=== PATIENT | female | born 1980 | race Caucasian/White ===

== ENCOUNTER 2024-12-09 21:54 | Emergency (ER) | payer SELFPAY ==
[~2024-12-09] VITALS: Ht 172.7 cm; Wt 59.0 kg
[2024-12-09 21:58] VITALS: O2SAT 98
[2024-12-09] MEDS ORDERED: diphenhydrAMINE 50 MG/1 ML VIAL ONE (22:27)
[2024-12-09] MEDS ORDERED: METOCLOPRAMIDE HCL 10 MG/2 ML VIAL ONE (22:28)
[2024-12-09] MEDS ORDERED: HYDROMORPHONE 1 MG/1 ML DISP.SYRIN ONE (22:28)
[2024-12-09] MEDS: diphenhydrAMINE 50 MG/1 ML VIAL IV ONE (22:40)
[2024-12-09] MEDS: METOCLOPRAMIDE HCL 10 MG/2 ML VIAL IV ONE (22:40)
[2024-12-09] MEDS: HYDROMORPHONE 1 MG/1 ML DISP.SYRIN IV ONE (22:40)
[2024-12-09] MEDS ORDERED: FREM225S SQ (22:56)
[2024-12-09] MEDS ORDERED: HYDR-3980 PO (23:00)
[2024-12-09] MEDS ORDERED: ONDA4TAB11 PO (23:00)
== END 2024-12-09 23:29 | disposition home or self-care (01) ==
LOC: ER 21:57
DX: G43.909 Migraine, unspecified, not intractable, without status migrainosus (principal)
CPT/HCPCS: 99284; 96374; 96375; J1171; J1200; J2765; J7040; A4606; A4663